=== PATIENT | female | born 1955 | race Caucasian/White ===

== ENCOUNTER 2017-04-16 07:36 | Day surgery (SDC) | payer BC ==
--- NOTE | 2017-04-13 11:54 | HP ---
PREOPERATIVE HISTORY AND PHYSICAL: DATE OF ADMISSION: 04/16/17 PROVIDER: Román Ventura MD.* (DICTATED BY LAURENCE AVILA) CHIEF COMPLAINT: Left ankle pain. HISTORY OF PRESENT ILLNESS: Marah is a 61-year-old female who has been followed by Dr. Ventura for ongoing pain in her left ankle. She was diagnosed with posterior tibial tendonitis. She has tried immobilization, custom bracing , and a course of physical therapy. The pain has persisted and is getting worse. She is interested in surgical intervention at this point for correction of the problem. PAST MEDICAL HISTORY: Hypertension, hyperlipidemia, history of a brain aneurysm , GERD, and depression. PAST SURGICAL HISTORY: Brain aneurysm clips in 1986, appendectomy in 1983, tonsillectomy in 1963. She reports no complications with anesthesia with any of the procedures. CURRENT MEDICATIONS: 1. Lescol XL 80 mg one p.o. daily. 2. Lansoprazole 30 mg one p.o. daily. 3. Bupropion HCl ER 300 mg one p.o. daily. 4. Hydrochlorothiazide 25 mg one p.o. daily. 5. Naproxen sodium 550 mg one tab twice daily as needed. 6. Ibuprofen 2 tabs by mouth as needed. 7. Vitamin D2 2000 units 1 by mouth daily. 8. Stool softener 1 by mouth q.h.s. p.r.n. ALLERGIES: PENICILLIN. SOCIAL HISTORY: She lives alone. She works at [employer] , doing database designer. She drinks alcohol occasionally. She is a former cigarette smoker and quit in 1986. She smoked 2 packs of cigarettes per day for 10 years prior to that. She exercises rarely. REVIEW OF SYSTEMS: Constitutional: Negative for recent hospitalizations, fevers, chills, night sweats, or unexplained weight loss. Head: Negative for unusual headache, lightheadedness or balance problems. Cardiovascular: Negative for chest or arm pain with exertion, history of heart attack, heart murmur, heart palpitations, high blood pressure, embolism, or deep vein thrombosis. Respiratory: Negative for chronic cough, shortness of breath with exertion, asthma, or COPD. Gastrointestinal: Positive for heartburn. Negative for nausea, vomiting, diarrhea, constipation. Positive for GERD. Genitourinary : Negative for nighttime urination, frequency of urination, urinary tract infection, or kidney problems. Musculoskeletal: Negative for chronic back pain or recent fractures. Skin: Negative for rashes, lesions, lumps, or sores. Neurologic: Positive for history of seizure after the brain aneurysm; however, that has been stable. Negative for epilepsy. Positive for depression. Negative for anxiety. Endocrine: Negative for diabetes or thyroid problems. Hematology: Negative for easy bruising, bleeding, or anemia. PHYSICAL EXAMINATION GENERAL: She is a well-developed, well-nourished, obese female in no acute distress at rest. She is alert and oriented x3 with appropriate mood and affect. VITAL SIGNS: The patient is 5 feet 2 inches, 258 pounds, blood pressure 140/82 , heart rate of 80, pulse 16, temperature 97.8. HEENT: Normocephalic, atraumatic. Her hearing and vision are grossly intact. NECK: Her trachea is midline. RESPIRATORY: Lungs are clear to auscultation bilaterally. No wheezes, rales, or rhonchi. CARDIOVASCULAR: Regular rate and rhythm. No murmurs, rubs, or gallops. Normal S1, S2. ABDOMEN: Soft, nondistended, nontender. Normal bowel sounds. EXTREMITIES: Exam of the left lower extremity, skin is intact without abrasions or open wounds. There is no edema or ecchymosis. She has a hindfoot valgus deformity, which is flexible. She is not able to demonstrate any inversion against resistance and she has significant tenderness to palpation along the medial, posterior, tibial tendon. She is able to flex and extend her MTP joints. Her sensation to light touch is intact. She has a normal vascular exam. IMPRESSION: Left ankle posterior tibial tendonitis. PLAN: The patient is to undergo left ankle posterior tibial tendon reconstruction with FDL transfer and calcaneal osteotomy. The risks, benefits, and postoperative course were discussed with the patient at length and she would like to proceed. All of her questions were answered to her full satisfaction. She is understanding to call if she develops any problems or concerns. A prescription for oxycodone was sent to her pharmacy for postoperative pain. LAURENCE AVILA [id number]/[facility] #: [id number] [place]
[~2017-04-16 07:36] MED LIST: Buffered Lidocaine 0.9% SYRIN* 5 ML/SYR SYRINGE INTRADERM ONE; Dexamethasone IV* 4 MG/ML 1 ML (4 MG) IV SLOW PU ONE; Famotidine IV* 10 MG/ML 2 ML (20 mg) IV ONE
[2017-04-16] MEDS ORDERED: Dexamethasone IV* 4 MG/ML 1 ML (4 MG) ONE (07:56)
[2017-04-16] MEDS ORDERED: Clindamycin 900 MG IVPREMIX(* 900 MG/50 ML SDV IV ONE (07:56)
[2017-04-16] MEDS ORDERED: Buffered Lidocaine 0.9% SYRIN* 5 ML/SYR SYRINGE ONE (07:56)
[2017-04-16] MEDS ORDERED: Famotidine IV* 10 MG/ML 2 ML (20 mg) ONE (07:56)
[2017-04-16] MEDS ORDERED: Bupivacaine 0.5% SDV PF* 10-30ML VIAL ONE (10:10)
[2017-04-16] MEDS ORDERED: fentaNYL* 50 MCG/ML 2 ML VIAL (100 MCG VIAL) ONE ×3 (10:19→12:28)
[2017-04-16] MEDS ORDERED: Midazolam* 1 MG/ML 2 ML VIAL (2 MG) ONE (10:20)
[2017-04-16] MEDS ORDERED: HYDROmorphone INJ* 1 MG/ML CARPUJECT SYRINGE IV PRN (11:14)
[2017-04-16] MEDS ORDERED: Naloxone* 0.4 MG/ML 1 ML VIAL IV PRN (11:14)
[2017-04-16] MEDS ORDERED: DiMENhydriNATE IV* 50 MG/ML VIAL IV PUSH PRN (11:14)
[2017-04-16] MEDS ORDERED: Propofol* 10 MG/ML 20 ML BTL IV PUSH ONE (11:22)
[2017-04-16] MEDS ORDERED: Ondansetron INJ* 2 MG/ML VIAL ONE (11:22)
[2017-04-16] MEDS ORDERED: Ketorolac INJ* 30 MG/ML 1 ML VIAL ONE (11:22)
[2017-04-16] MEDS: fentaNYL* 50 MCG/ML 2 ML VIAL (100 MCG VIAL) IV PRN ×2 (12:30→12:47)
[2017-04-16] MEDS ORDERED: oxyCODONE TAB* 5 MG TAB ONE (13:00)
[2017-04-16 15:10] VITALS: BP 123/69
--- NOTE | 2017-04-17 13:25 | OP ---
DATE OF OPERATION: 04/16/17 - [facility] DATE OF : 57 ATTENDING SURGEON: Román Ventura MD EMT/PARAMEDIC: Nelly Diaz PA-C. 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 OPERATIVE PROCEDURE: Medial displacement osteotomy, left calcaneus and FDL transfer, posterior tibial. DESCRIPTION OF PROCEDURE: The patient was taken to the operating room where lateral longitudinal incision was made parallel to peroneus longus tendon. Both tendons were subluxed dorsally to allow the osteotomy to be carried from lateral to medial through the groove of the peroneus longus tendon. We then opened up the osteotomy with the laminar commercial lines account assistant and displaced this medially. A full centimeter, close to 12 mm pinning it with a 70 mm partially threaded 7.3 screw from the heel up toward the anterior process of the calcaneus. We then closed the heel wound with interrupted 2-0 Surgipro sutures. We irrigated lateral wound, closing with 2-0 Vicryl and 3 -0 nylon. We then rolled the foot externally to allow visualization of the medial hindfoot. We opened up longitudinally from the malleolus down to the medial part of the 1st metatarsal. Posterior tibia; sheath was opened and we noted that posterior tibial to be thickened in its distal 2 to 3 cm. The undersurface or the plantar aspect of it was debrided with a 15 blade, thinning the tendon and removing some tendonotic material. The FDL tendon was then released with the knot of Terence and transferred proximally. We drilled plantar to dorsal through the medial navicular with a 5 mm diameter cannulated drill bit. We passed the FDL tendon from plantar to dorsal and sewed it down over the dorsal aspect of the navicular with a #0 Vicryl suture. We then whipstitched the FDL tendon into the underbelly of the posterior tibial with a running 2-0 Vicryl suture. This wound was then irrigated and closed with 2-0 Vicryl and kristen and a compression dressing and plaster splint applied. [id number]/[facility] #: [id number] [facility]
== END 2017-04-16 15:12 | disposition home or self-care (01) ==
LOC: OR 07:36
PROVIDERS: ATTEND Orthopaedic Surgery
DX: M76.822 Posterior tibial tendinitis, left leg (principal); M67.874 Other specified disorders of tendon, left ankle and foot; I10 Essential (primary) hypertension; E78.5 Hyperlipidemia, unspecified; K21.9 Gastro-esophageal reflux disease without esophagitis; F32.9 Major depressive disorder, single episode, unspecified; Z68.42 Body mass index [BMI] 45.0-49.9, adult; R01.1 Cardiac murmur, unspecified; Z87.891 Personal history of nicotine dependence; E04.1 Nontoxic single thyroid nodule
CPT/HCPCS: A9270-GY; C1713; J1100; J1885; J2250; J2405; J2704; J3010